=== PATIENT | male | born 1975 | race Two or more races ===

== ENCOUNTER 2016-10-15 07:07 | Emergency (ER) | payer MEDICAID, OTHER ==
[2016-10-15 07:14] VITALS: RESP 16
--- NOTE | 2016-10-15 07:58 | EDPHY ---
H & P Stated Complaint: Injured L hand at work yesterday Time Seen by Provider: 10/15/16 07:49 HPI/ROS: CHIEF COMPLAINT: Left hand pain HISTORY OF PRESENT ILLNESS: The patient is a 40 year old male presenting to the emergency department with a left hand injury from a fall at work yesterday. The patient states he fell forward and landed on his left fist. He reports no other injuries other than some scratches on his chest. He denies head trauma. No chest pain or shortness of breath. REVIEW OF SYSTEMS: Aside from elements discussed in the HPI, a comprehensive 10-point review of systems was reviewed and is negative. PAST MEDICAL HISTORY: Denies. SOCIAL HISTORY: Cigarette smoker. No alcohol use. VITAL SIGNS: Reviewed by me; see NN. GENERAL: Well-developed, well-nourished, in no acute distress. EXTREMITIES: left hand: Swelling to 4th and 5th metacarpals, tenderness to the mcp joint of the 5th finger. Wrist nontender, full range of motion. Palm has no abrasions and no open wounds. Neurovascularly intact. Portions of this note were transcribed by a medical orderly. I personally performed a history, physical exam, medical decision making, and confirmed accuracy of information the transcribed note. Source: Patient - Personal History Current Tetanus Diphtheria and Acellular Pertussis (TDAP): Unsure - Medical/Surgical History Other PMH: "weak ankle" from previous fx - Social History Smoking Status: Current every day smoker Constitutional: Initial Vital Signs Temperature (C) 36.4 C 10/15/16 07:12 Heart Rate 71 10/15/16 07:12 Respiratory Rate 16 10/15/16 07:12 Blood Pressure 100/59 L 10/15/16 07:12 O2 Sat (%) 96 10/15/16 07:12 O2 Delivery Mode Room Air Allergies/Adverse Reactions: No Known Allergies Allergy (Verified 10/15/16 07:11) Home Medications: Medication Instructions Recorded Hydrocodone/APAP 5/325 [[place] 1 tab PO Q6H PRN #10 tab 10/15/16 5/325 (RX)] Medical Decision Making - Diagnostics Imaging: Study: X-ray of the left hand was obtained. Results: Fracture at the head of the 5th metacarpal. I viewed the images myself on the PACS system. ED Course/Re-evaluation: Procedure: Splint placement. A ulnar gutter splint was applied to the left forearm and hand by the tech. After application of the splint I returned and re-examined the patient. The splint was adequately immobilizing the joint and distal to the splint the patient's circulation and sensation was intact. Follow up per orthopedics as referred below. Differential Diagnosis: Differential diagnosis for the patient's injury was considered including but not limited to contusion, abrasion, laceration, fracture, open fracture, or dislocation. Departure - Departure Disposition: Home, Routine, Self-Care Clinical Impression: Closed fracture of 5th metacarpal Condition: Good Instructions: Hand Fracture (ED) Additional Instructions: 1. Followup with the referred Orthopedic surgeon. Call today to arrange followup appointment. 2. I recommend Ibuprofen (Motrin, Advil) or Naproxen Sodium (Aleve) for pain and anti-inflammatory effects. You may take either one, but do not take both. Your dose is: Ibuprofen 600 mg every 6-8 hours with food. OR Naproxen Sodium (Aleve) 220 mg every 12 hours. Mainstay of therapy is rest, ice, immobilization, elevation, and nonsteroidal anti-inflammatories for pain and to decrease swelling. Referrals: Morris Rankin MD [Medical Doctor] - As per Instructions (Orthopedic Surgery) Prescriptions: Hydrocodone/APAP 5/325 [[place] 5/325 (RX)] 1 tab PO Q6H PRN #10 tab PRN Reason: Pain Report Scribed for: Sandy Perez Report Scribed by: Sangeeta Storey Date of Report: 10/15/16 Time of Report: 08:21
[2016-10-15 08:26] VITALS: BP 126/82; PULSE 78; TEMP 97.9; O2SAT 93
== END 2016-10-15 08:27 | disposition home or self-care (01) ==
DX: S62.307A Unspecified fracture of fifth metacarpal bone, left hand, initial encounter for closed fracture (principal); F17.210 Nicotine dependence, cigarettes, uncomplicated; W18.39XA Other fall on same level, initial encounter; Y92.69 Other specified industrial and construction area as the place of occurrence of the external cause; Y99.0 Civilian activity done for income or pay